=== PATIENT | female | born 1950 | race Caucasian/White ===

== ENCOUNTER 2019-08-23 13:16 | Inpatient (IN) | payer MEDICARE ==
[~2019-08-23] VITALS: Ht 154.9 cm; Wt 81.4 kg
[2019-08-23 13:27] VITALS: BP 146/64
--- NOTE | 2019-08-23 13:38 | NUR ---
DELAY IN TAKING PT UPSTAIRS FOR ADMISSION DUE TO HER ROOM NOT BEING CLEAN. RN TO CALL BACK WHEN ROOM CLEANED.
[2019-08-23 13:45] LABS: BASO # 0.1 10*3/uL (0.0-0.1); BASO % 0.9 % (0.0-1.0); EOS # 0.4 10*3/uL (0.0-0.4); EOS % 3.9 % (1.0-4.0); HEMATOCRIT 37.9 % (37.0-47.0); HEMOGLOBIN 12.3 g/dl (12.0-16.0); LYMPH # 3.6 10*3/uL (1.3-4.4); LYMPH % 39.6 % (27.0-41.0); MEAN CELL VOLUME 90.9 fl (81.0-99.0); MEAN CORPUSCULAR HGB 29.5 pg (27.0-31.0); MEAN CORPUSCULAR HGB CONC 32.5 g/dl (33.0-37.0); MEAN PLATELET VOLUME 10.5 fl (9.6-12.3); MONO # 0.6 10*3/uL (0.1-1.0); MONO % 6.8 % (3.0-9.0); NEUT # 4.4 10*3/uL (2.3-7.9); NEUT % 48.5 % (47.0-73.0); PLATELET COUNT AUTOMATED 269 10*3/uL (130-400); RED BLOOD COUNT 4.17 10*6/uL (4.10-5.10); RED CELL DISTRI WIDTH 13.8 % (0-14.5); WHITE BLOOD COUNT 9.2 10*3/uL (4.8-10.8)
[2019-08-23 13:55] LABS: ACT PARTIAL THROMBO TIME 25.9 SECONDS (20.0-32.1); INTERNATIONAL NORM RATIO 0.9 (2.0-3.5)
[2019-08-23 14:06] LABS: ALBUMIN 3.4 gm/dl (3.1-4.5); ALKALINE PHOSPHATASE 107 U/L (45-117); BUN 19 mg/dl (7-24); CHLORIDE 107 mmol/L (98-107); CREATININE 0.89 mg/dL (0.55-1.02); POTASSIUM 3.3 mmol/L (3.5-5.1); SGOT/AST 21 IU/L (3-35); SGPT/ALT 28 U/L (12-78); SODIUM 140 mmol/L (136-145); TOTAL PROTEIN 7.2 gm/dL (6.4-8.2)
[2019-08-23 14:07] LABS: TROPONIN I < 0.015 ng/ml (<0.045)
[2019-08-23 14:30] VITALS: BP 152/62
[2019-08-23 15:37] VITALS: BP 152/68
[2019-08-23 15:45] VITALS: BP 152/66
--- NOTE | 2019-08-23 15:45 | NUR ---
A 69, admitted to , under the services of MARY ELLEN Bower DO with a diagnosis of CHEST PAIN WITH LOW RISK OF CARDAIC ETIOLOGY. Chief complaint is CHEST PAIN. Patient arrived via ambulatory from ER. Monitor applied. Initial assessment completed. Vital signs taken and recorded. MARY ELLEN BOWER DO notified of admission to the unit. Orders received. See assessment for past medical history, medications and allergies. Patient and/or family oriented to unit. [address] visitation policy reviewed. Clothing/patient valuable form completed. NO FURTHER COMPLAINTS OF CHEST PAIN AT THIS TIME. JOYCELYN OLEA
[2019-08-23] MEDS ORDERED: CYMBALTA60 MG PO (16:18)
[2019-08-23] MEDS ORDERED: DULOXETINE HCL60 MG PO (16:20)
[2019-08-23] MEDS ORDERED: OMEPRAZOLE20 M2 PO (16:21)
[2019-08-23] MEDS ORDERED: LISINOPRIL-HCT1 EACH PO (16:22)
[2019-08-23] MEDS ORDERED: GLUCOPHAGE1000 MG PO (16:26)
[2019-08-23] MEDS ORDERED: VALACYCLOVIR H500 M1 PO (16:27)
[2019-08-23] MEDS ORDERED: PRAVASTATIN SOD40 MG PO (16:27)
[2019-08-23] MEDS ORDERED: B121000 MCG/1 IM (16:28)
[2019-08-23] MEDS ORDERED: EMERGEN-C 500500 MG PO (16:30)
[2019-08-23] MEDS ORDERED: DAILY VITAMIN1 EAC3 PO (16:31)
[2019-08-23] MEDS ORDERED: COLACE100 MG PO (16:33)
--- NOTE | 2019-08-23 16:50 | NUR ---
NOTIFIED DR HOOVER'S ANSWERING SERVICE OF CONSULT.
[2019-08-23 20:00] VITALS: BP 144/55
--- NOTE | 2019-08-23 20:30 | NUR ---
PATIENT ASSESSMENT COMPLETED WITHOUT INCIDENT. PATIENT DENIES ANY CHEST PAIN/PRESSURE, SHORTNESS OF BREATH, OR DISCOMFORT AT THIS TIME. EXPLAINED TO PATIENT ABOUT ORDERED STRESS TEST IN AM AND NPO STATUS AFTER MIDNIGHT. CALL LIGHT WITHIN REACH, WILL CONTINUE TO MONITOR.
[2019-08-24] VITALS: BP 115/63
[2019-08-24 06:28] LABS: BASO # 0.1 10*3/uL (0.0-0.1); BASO % 0.9 % (0.0-1.0); EOS # 0.3 10*3/uL (0.0-0.4); EOS % 3.9 % (1.0-4.0); HEMATOCRIT 40.4 % (37.0-47.0); HEMOGLOBIN 12.8 g/dl (12.0-16.0); LYMPH % 35.5 % (27.0-41.0); MEAN CELL VOLUME 90.2 fl (81.0-99.0); MEAN CORPUSCULAR HGB 28.6 pg (27.0-31.0); MEAN CORPUSCULAR HGB CONC 31.7 g/dl (33.0-37.0); MEAN PLATELET VOLUME 10.4 fl (9.6-12.3); MONO # 0.6 10*3/uL (0.1-1.0); MONO % 6.9 % (3.0-9.0); NEUT # 4.5 10*3/uL (2.3-7.9); NEUT % 52.4 % (47.0-73.0); PLATELET COUNT AUTOMATED 268 10*3/uL (130-400); RED BLOOD COUNT 4.48 10*6/uL (4.10-5.10); RED CELL DISTRI WIDTH 13.7 % (0-14.5); WHITE BLOOD COUNT 8.5 10*3/uL (4.8-10.8)
[2019-08-24 06:45] LABS: ALBUMIN 3.4 gm/dl (3.1-4.5); ALKALINE PHOSPHATASE 93 U/L (45-117); BUN 16 mg/dl (7-24); CHLORIDE 106 mmol/L (98-107); CHOLESTEROL 160 mg/dL (<200); CREATININE 0.83 mg/dL (0.55-1.02); PHOSPHOROUS 3.8 mg/dL (2.5-4.9); SGOT/AST 20 IU/L (3-35); SGPT/ALT 28 U/L (12-78); SODIUM 142 mmol/L (136-145); TRIGLYCERIDES 205 mg/dl (<150); VLDL CHOLESTEROL 41 mg/dL (6-40)
[2019-08-24 06:52] LABS: FREE T4 0.82 ng/dl (0.76-1.46); HDL CHOLESTEROL 35 mg/dl (40-60); LDL CHOLESTEROL 84 mg/dL (9-159); THYROID STIM HORMONE (HS) 0.658 uIU/ml (0.358-4.75); TOTAL PROTEIN 7.4 gm/dL (6.4-8.2)
[2019-08-24 07:24] LABS: VITAMIN D, 25-HYDROXY 38.1 ng/mL (30-100)
[2019-08-24 07:27] LABS: POTASSIUM 4.3 mmol/L (3.5-5.1)
[2019-08-24 08:00] VITALS: BP 118/80
--- NOTE | 2019-08-24 08:45 | NUR ---
PT ARTURO FOR STRESS TEST
--- NOTE | 2019-08-24 09:00 | NUR ---
Hand Nailer in to talk to patient. Patient states lives at home with alone. There are few steps in the home. Physician: nu chung Pharmacy: [facility] Home health services: none Patient's level of ADLs: INDEPENDENT Patient has working utilities: all working DME: none Follow-up physician's appointment after d/c: will be made by hospitalist nurse director upon discharge Does patient want to access PORTAL?: no Discharge plan discussed with patient, she states she lives at home, is independent in adls and ambulation works and drives, she states she will return home when medically stable and denies any home needs. RHONA NAVARRO
--- NOTE | 2019-08-24 10:09 | NUR ---
INFORMED SIGNED CONSENT OBTAINED FOR LEXISCAN SCAN STRESS TEST WITH DR FLANAGAN. RESTING EKG NSR HR 71 BP 132/80. PULSE OX 97% LUNGS CLEAR. PT COMPLETED ONE MINUTE OF A LEXISCAN PROTOCOL WITH PT RECEIVING LEXISCAN 0.4MG IV OVER 10 SECONDS. NO ARRHYTHMIAS OR ST CHANGES NOTED. PT HAD NO SYMPTOMS WITH INJECTION. LAST RECOVERY HR OF 81 BP 128/68. PT IN STABLE CONDITION, AWAITING NUCLEAR IMAGES.
[2019-08-24 12:00] VITALS: BP 138/61
[2019-08-24 16:00] VITALS: BP 128/56
--- NOTE | 2019-08-24 17:44 | NUR ---
Discharge instructions reviewed with patient/family. Patient receptive and verbalizes understanding. Follow-up care arranged. Written instructions given to patient/family. DEDE LAMAS
== END 2019-08-24 17:44 | disposition home or self-care (01) | DRG 392 ==
LOC: ED 13:16 → EDHOLD 14:12 → 4E 14:12
PROVIDERS: Emergency Medicine; Internal Medicine; ADMIT Internal Medicine
DX: K21.9 Gastro-esophageal reflux disease without esophagitis (principal); E87.6 Hypokalemia; B00.9 Herpesviral infection, unspecified; E66.9 Obesity, unspecified; E11.22 Type 2 diabetes mellitus with diabetic chronic kidney disease; E78.5 Hyperlipidemia, unspecified; F32.9 Major depressive disorder, single episode, unspecified; E78.1 Pure hyperglyceridemia; Z82.49 Family history of ischemic heart disease and other diseases of the circulatory system; Z91.040 Latex allergy status; Z88.1 Allergy status to other antibiotic agents; Z79.84 Long term (current) use of oral hypoglycemic drugs; Z68.34 Body mass index [BMI] 34.0-34.9, adult; Z90.49 Acquired absence of other specified parts of digestive tract; Z98.51 Tubal ligation status

== ENCOUNTER → 2024-03-10 | Outpatient (CLI) | payer MEDICARE ==
[~2024-03-10] MED LIST: B121000 MCG/1 IM; COLACE100 MG PO; CYMBALTA60 MG PO; DAILY VITAMIN1 EAC3 PO; DULOXETINE HCL60 MG PO; EMERGEN-C 500500 MG PO; GLUCOPHAGE1000 MG PO; LISINOPRIL-HCT1 EACH PO; OMEPRAZOLE20 M2 PO; PRAVASTATIN SOD40 MG PO; VALACYCLOVIR H500 M1 PO
[2024-03-12 13:07] LABS: TB1 Ag VALUE 0.06 IU/mL (.)
== END ==
LOC: LAB 13:37
PROVIDERS: ATTEND Physician Assistant
DX: Z20.1 Contact with and (suspected) exposure to tuberculosis (principal)